=== PATIENT | female | born 1985 | race Caucasian/White ===

== ENCOUNTER 2025-03-23 11:24 | Emergency (ER) | payer OTHER, SELFPAY ==
[2025-03-23 11:28] VITALS: BP 136/86
[2025-03-23] MEDS: AUGMENTIN 875 MG/125 MG 1 TABLET PO (12:03)
--- NOTE | 2025-03-23 12:11 | ED.SKININJ ---
HPI-Injury
General
Chief Complaint: Bite
Source: patient
Time Seen by Provider: 03/23/25 11:34
History of Present Illness-Injury
Initial Injury comments:
39-year-old female presenting to the emergency department for evaluation after she was trying to break up a fight between her 2 dogs at home and was accidentally bit on the left posterior thigh and right index finger by one of her dogs. Patient
sustained laceration to the left posterior thigh. Dog's vaccines are up-to-date. Patient's vaccinations are up-to-date as well. No other injuries were sustained, no medications taken prior to arrival.
Past History
Past History
ED Past Medical History: None
ED Past Surgical History: None
Social History
Tobacco: Smoker
Alcohol: None
Drug: None
Personal:
Living: with family
Review of Systems
Review of Systems
All Other Systems: ROS reviewed and negative except as documented in HPI and ROS
Phy Exam
Physical Exam
Physical Exam:
GENERAL: Alert , in no apparent distress, anxious and tearful
EYE: conjunctiva clear
Head: Normocephalic atraumatic
NECK: Supple,
ENT: mmm.
LUNGS: no acute respiratory distress
NEUROLOGICAL: Alert and oriented
SKIN: Warm and dry, 1.5 cm large laceration, partial thickness, no active bleeding to posterior left thigh. small puncture to the right index finger distal phalynx
MUSCULOSKELETAL: well perfused.
PSYCH: Normal and appropriate interaction.
Scores
Heart Failure Risk
Heart Failure Risk Score: Not Applicable
Heart Score for Chest Pain Patients
STEMI patient?: Not applicable
Withdrawal Assessment of Alcohol
Withdrawal Assessment Completed?: Not applicable
Course
Orders/Labs/Results
Orders:
Orders
03/23/25 11:41
Amoxicillin 875 mg/Clav 125 mg [Augmentin 875 mg/125 mg] 1 tablet PO NOW STA
Vital Signs
Initial and Last Documented VS:
Initial Vital Signs
Temp Pulse Resp BP Pulse Ox
97.3 F 127 18 136/86 100
03/23/25 11:28 03/23/25 11:28 03/23/25 11:28 03/23/25 11:28 03/23/25 11:28
Last Documented Vital Signs
Temp Pulse Resp BP Pulse Ox
97.3 F 127 18 136/86 100
03/23/25 11:28 03/23/25 11:28 03/23/25 11:28 03/23/25 11:28 03/23/25 12:16
Procedures
Laceration Closure
Left Posterior Thigh:
Status of Wound: clean
Size of Wound in cm: 1.5
Description of Wound Edges: sharp
Preparation: cleaned with saline
Anesthesia: 1% Lidocaine
Revision/Debridement: routine- no revision
Skin Closure Material: 5-0 nylon
Number of sutures: 4
Additional information:
Skin loosely approximated due to the nature of the laceration being from a bite
MDM/Problems Addressed
Differential Diagnosis Includes:
Partial thickness bite wound
No concern for tendon/nerve involvement
No concern for fracture
MDM/Problems Addressed:
39-year-old female presenting to the ER for evaluation after sustaining accidental bite to the left posterior thigh by family dog. Small puncture to the right index finger as well. No other injuries were sustained. Vaccinations are all
up-to-date. Laceration was repaired as above without difficulty. Skin was loosely approximated due to the nature of the laceration. Will initiate patient on Augmentin. NSAIDs/Tylenol as needed for pain. Patient advised on return precautions to
the ER.
*Pulse Oximetry
SaO2: 100
Oxygen Mode of Delivery: Room air
Patient hypoxic: no
*Critical Care Note
Total Time (30-74mins, 75-104mins- exclusive of procedures): Not Applicable
ED Attending Note
-
Portions of this chart may have been created with voice recognition software.� Occasional wrong word or��sound alike� substitutions may have occurred due to the inherent limitations of voice recognition software.
Discharge Plan
Departure
Patient Disposition: Home (Routine Discharge)
Date of Disposition: 03/23/25
Time of Disposition: 12:35
Patient with high blood pressure during this ER visit?: No
Discharge Problem:
Dog bite of left thigh, Dog bite of right hand
Instructions: Animal Bites (DC)
Prescriptions:
New
amoxicillin-pot clavulanate 875-125 mg tablet
1 tab PO BID 7 Days Qty: 14 0RF
No Action
amoxicillin-pot clavulanate 875-125 mg tablet
1 tab PO BID Qty: 14 0RF
clindamycin HCl 150 mg capsule
450 mg PO TID 7 Days Qty: 63 0RF
Referrals:
Bre Lozano CRNP [Family Provider, General]
Interventions
Interventions:
*Risk Screen - Suicide Last Done: 03/23/25 11:28
*General Assessment Last Done: 03/23/25 11:28
*ED COVID-19 Vaccine History Last Done: 03/23/25 11:28
*ED Influenza Vaccine History Last Done: 03/23/25 11:28
*Nursing Disposition Last Done: 03/23/25 13:17
ED-Skin Assessment Last Done: 03/23/25 11:35
Discharge Date and Time
Discharge Date/Time: 03/23/25 13:48
Print Language: [place]ET[place]
== END 2025-03-23 13:48 | disposition home or self-care (01) ==
LOC: EMR 11:24
PROVIDERS: EMERGENCY PHYSICIAN Emergency Medicine; FAMILY PHYSICIAN Nurse Practitioner
DX: S71.152A Open bite, left thigh, initial encounter (principal); S61.250A Open bite of right index finger without damage to nail, initial encounter; W54.0XXA Bitten by dog, initial encounter; Y92.009 Unspecified place in unspecified non-institutional (private) residence as the place of occurrence of the external cause; F17.200 Nicotine dependence, unspecified, uncomplicated
CPT/HCPCS: 99283; 12001